=== PATIENT | female | born 1980 | race Caucasian/White ===

== ENCOUNTER → 2019-11-24 | Outpatient (REF) | payer OTHER, SELFPAY | LOC: M LAB REF 17:20 | PROVIDERS: ATTEND Physician Assistant | DX: D23.111 Other benign neoplasm of skin of right upper eyelid, including canthus (principal) ==

== ENCOUNTER → 2022-01-18 | Outpatient (CLI) | payer OTHER | LOC: M PLAIMG 13:15 | PROVIDERS: ATTEND Otolaryngology | DX: R22.1 Localized swelling, mass and lump, neck (principal) ==

== ENCOUNTER → 2022-02-01 | Outpatient (CLI) | payer OTHER ==
[~2022-02-01] MED LIST: LIDOCAINE 1% MDV 20ML VIAL As Ordered ONE
[2022-02-01 15:25] VITALS: BP 134/79
== END ==
LOC: M IRPRO 13:27
PROVIDERS: ATTEND Otolaryngology
DX: D34 Benign neoplasm of thyroid gland (principal)